=== PATIENT | female | born 1965 | race Caucasian/White ===

== ENCOUNTER 2019-09-28 13:43 | Outpatient (CLI) | payer BC ==
[~2019-09-28 13:43] MED LIST: barium sulfate 450ml oral suspension ONE
== END 2019-09-28 23:59 | disposition home or self-care (01) ==
LOC: RAD 13:43
PROVIDERS: ATTEND Family Medicine
DX: R13.14 Dysphagia, pharyngoesophageal phase (principal); R49.0 Dysphonia
CPT/HCPCS: 74230